=== PATIENT | male | born 1970 | race Caucasian/White ===

== ENCOUNTER 2019-03-23 17:17 | Emergency (ER) | payer OTHER ==
[~2019-03-23] VITALS: Ht 172.7 cm; Wt 103.4 kg
[2019-03-23 17:24] VITALS: Ht 172.7 cm; Wt 103.4 kg
[2019-03-23 18:34] LABS: BASOPHIL % 0.1 % (0-2); CALCIUM 8.4 mg/dL (8.5-10.1); CARBON DIOXIDE 25.7 mmol/L (21-32); CHLORIDE SERUM 100 mmol/L (98-107); GFR1 > 60 mL/min; GLUCOSE SERUM 111 mg/dL (74-106); PLATELET COUNT 181 x10^3mcL (130-400); POTASSIUM SERUM 3.6 mmol/L (3.5-5.1); SODIUM SERUM 138 mmol/L (136-145)
[2019-03-23 18:39] LABS: ALBUMIN 4.1 g/dL (3.4-5.0); ALKALINE PHOSPHATASE 97 U/L (46-116); ALT/SGPT 54 U/L (16-63); AST/SGOT 16 U/L (15-37); BILIRUBIN TOTAL 0.86 mg/dL (0.20-1.00); C REACTIVE PROTEIN 2.7 mg/dL (<=0.9); TOTAL PROTEIN, SERUM 7.2 g/dL (6.4-8.2)
[2019-03-23 21:25] VITALS: BP 111/57
== END 2019-03-23 21:25 | disposition home or self-care (01) ==
LOC: ED 17:17
PROVIDERS: Student in an Organized Health Care Education/Training Program
DX: L03.116 Cellulitis of left lower limb (principal)
CPT/HCPCS: J1885; J3490; J7030